=== PATIENT | male | born 1980 | race Caucasian/White ===

== ENCOUNTER 2020-05-23 20:05 | Observation (INO) ==
[2020-05-23] MEDS ORDERED: ONDANSETRON 4 MG/2 ML VIAL IV STA (21:18)
[2020-05-23] MEDS ORDERED: HYDROmorphone 2 MG/1 ML VIAL IV STA ×2 (21:18→22:38)
[2020-05-23] MEDS ORDERED: SODIUM CHLORIDE 0.9% 1,000 ML IV STA (21:18)
[2020-05-23] MEDS ORDERED: PIPERACILLIN/TAZOBACTAM 3,375 MG in SODIUM CHLORIDE 0.9% 100 ML IV STA (22:37)
[2020-05-23 22:41] LABS: Basophils # 0.1 10*3/uL (0.0-0.2); Basophils % 0.3 % (0.0-0.8); Eosinophils % 0.1 % (0.00-10.9); Hematocrit 48.8 VOL% (42.0-52.0); Immature Granulocytes % 0.5 %; Lymphocytes # 1.4 10*3/uL (1.4-4.0); Lymphocytes % 6.9 % (21.2-54.2); Mean Corpuscular HGB Conc 32.8 GM/DL (32-36); Mean Corpuscular Volume 95.1 FL (87-102); Mean Platelet Volume 10.3 FL (9.6-12.0); Monocytes % 7.4 % (1.7-12.7); Neutrophils % 84.8 % (38.7-73.9); Platelet Count 314 T/CUMM (130-400); Red Blood Count 5.13 MC/CUMM (3.8-5.5); Red Cell Distribution Width 12.5 % (9.3-17.3); White Blood Count 20.7 T/CUMM (4-12)
[2020-05-23 22:51] LABS: Bilirubin,Total 0.8 MG/DL (0.2-1.0); Calcium 8.7 MG/DL (8.5-10.1); Osmolality,Calculated 275.8 MOS/KG (273-304); Total Protein 7.6 G/DL (6.4-8.3)
[2020-05-23] MEDS ORDERED: ONDANSETRON 4 MG/2 ML VIAL IV PRN (23:04)
[2020-05-23] MEDS ORDERED: ACETAMINOPHEN 500 MG TABLET PO PRN (23:04)
[2020-05-24] MEDS: DEXTROSE 5% NACL 0.9% 1,000 ML IV SCH ×3 (00:22→15:48)
[2020-05-24 02:49] LABS: Lymphocytes 7 % (20-55); Platelet Estimate Increased; Segmented Neutrophils 90 % (50-85); Total Cells Counted 100
[2020-05-24 02:51] LABS: Polychromasia Slight
[2020-05-24 02:52] LABS: Stomatocytes Slight
[2020-05-24] MEDS: PIPERACILLIN/TAZOBACTAM 3,375 MG in SODIUM CHLORIDE 0.9% 100 ML IV SCH ×2 (09:13→17:53)
[2020-05-24] MEDS: PANTOPRAZOLE 40 MG TABLET PO SCH (09:14)
[2020-05-24] MEDS ORDERED: propofoL 200 MG/20 ML VIAL IV ONE (09:41)
[2020-05-24] MEDS ORDERED: fentaNYL 100 MCG/2 ML VIAL ONE (09:41)
[2020-05-24] MEDS ORDERED: MIDAZOLAM 2 MG/2 ML VIAL ONE (09:41)
[2020-05-24] MEDS ORDERED: ROCURONIUM 50 MG/5 ML VIAL IV ONE (09:41)
[2020-05-24] MEDS ORDERED: LIDOCAINE 2% 5 ML VIAL ONE (09:41)
[2020-05-24] MEDS ORDERED: LIDOCAINE 1% 20 ML VIAL ONE (09:56)
[2020-05-24] MEDS ORDERED: BUPIVACAINE MPF 0.25% 30 ML VIAL ONE (09:56)
[2020-05-24] MEDS ORDERED: ePHEDrine 50 MG/ML VIAL ONE (10:34)
[2020-05-24] MEDS ORDERED: ONDANSETRON 4 MG/2 ML VIAL ONE (10:35)
[2020-05-24] MEDS ORDERED: PHENYLEPHRINE 1 MG/10 ML SYRINGE IV ONE (10:35)
[2020-05-24] MEDS ORDERED: CALCIUM CHLORIDE 1,000 MG/10 ML VIAL IV ONE ×2 (10:51→10:55)
[2020-05-24] MEDS ORDERED: SODIUM CHLORIDE 0.9% 100 ML IV ONE (10:55)
[2020-05-24] MEDS ORDERED: GLYCOPYRROLATE 0.4 MG/2 ML VIAL ONE (10:55)
[2020-05-24] MEDS ORDERED: NEOSTIGMINE 10 MG/10 ML VIAL ONE (10:55)
[2020-05-24] MEDS ORDERED: BISACODYL 5 MG TABLET PO PRN (11:08)
[2020-05-24] MEDS ORDERED: ALBUTEROL/IPRATROPIUM 3 ML NEB RESP TX PRN (11:08)
[2020-05-24] MEDS ORDERED: ONDANSETRON 4 MG/2 ML VIAL IV PRN ×2 (11:08→11:20)
[2020-05-24] MEDS ORDERED: KETOROLAC 15 MG/1 ML VIAL IV PRN (11:08)
[2020-05-24] MEDS ORDERED: HYDROmorphone 2 MG/1 ML VIAL IV PRN ×3 (11:08→11:20)
[2020-05-24] MEDS ORDERED: ACETAMINOPHEN 325 MG TABLET PO PRN (11:08)
[2020-05-24] MEDS ORDERED: SEVOFLURANE 1 UNIT/15 MINUTE INH ONE (11:19)
[2020-05-24] MEDS ORDERED: MEPERIDINE 50 MG/1 ML VIAL IV PRN (11:20)
[2020-05-24] MEDS ORDERED: diphenhydrAMINE 50 MG/1 ML VIAL IV PRN (11:20)
[2020-05-24] MEDS ORDERED: PROMETHAZINE INJ 25 MG in SODIUM CHLORIDE 0.9% 50 ML IV PRN (11:20)
[2020-05-24 11:28] LABS: Bilirubin,Urine Negative (Negative); Blood, Urine Negative (Negative); Glucose,Urine (UA) Negative (Negative); Ketones,Urine 100 mg/dL (Negative); Nitrite,Urine Negative (Negative); Protein,Urine Negative; Urine Appearance Clear (Clear); Urine Color Yellow (Yellow); Urine Specific Gravity 1.015 (1.001-1.035); Urine Urobilinogen 0.2 EU/DL (0.2-1.0)
[2020-05-24] MEDS ORDERED: MEPERIDINE 25 MG/1 ML VIAL ONE (11:36)
[2020-05-24 14:58] LABS: Barbiturates Screen,Urine Negative (Negative); Benzodiazepines Screen,Urine Negative (Negative); Cannabinoid Screen,Urine Positive (Negative); Opiate Screen,Urine Positive (Negative); Phencyclidine Screen,Urine Negative (Negative)
[2020-05-24] MEDS: metroNIDAZOLE INJ 500 MG in PREMIX 1 EACH IV SCH (16:25)
[2020-05-25] MEDS: metroNIDAZOLE INJ 500 MG in PREMIX 1 EACH IV SCH (00:35)
[2020-05-25] MEDS: PIPERACILLIN/TAZOBACTAM 3,375 MG in SODIUM CHLORIDE 0.9% 100 ML IV SCH ×2 (01:38→09:32)
[2020-05-25] MEDS ORDERED: LEVOFLOXACIN INJ 500 MG in PREMIX 1 EACH IV SCH (05:09)
[2020-05-25 05:45] LABS: Basophils % 0.4 % (0.0-0.8); Eosinophils % 0.1 % (0.00-10.9); Hematocrit 39.9 VOL% (42.0-52.0); Hemoglobin 13.2 GM/DL (14.0-18.0); Immature Granulocytes % 0.3 %; Immature Granulocytes Absolute 0.03 #; Lymphocytes # 0.5 10*3/uL (1.4-4.0); Lymphocytes % 4.7 % (21.2-54.2); Mean Corpuscular HGB Conc 33.1 GM/DL (32-36); Mean Corpuscular Volume 96.6 FL (87-102); Mean Platelet Volume 10.3 FL (9.6-12.0); Monocytes % 4.9 % (1.7-12.7); Neutrophils % 89.6 % (38.7-73.9); Platelet Count 178 T/CUMM (130-400); Red Blood Count 4.13 MC/CUMM (3.8-5.5); Red Cell Distribution Width 12.9 % (9.3-17.3); White Blood Count 11.3 T/CUMM (4-12)
[2020-05-25] MEDS ORDERED: ENOXAPARIN 40 MG/0.4 ML SYRINGE SUBCUT SCH (06:00)
[2020-05-25 06:14] LABS: Eosinophils 1 % (0-10); Lymphocytes 4 % (20-55); Segmented Neutrophils 92 % (50-85); Total Cells Counted 100
[2020-05-25 06:15] LABS: Anisocytosis 1+; Hypochromasia 2+; Macrocytosis 1+; Platelet Estimate Normal
[2020-05-25] MEDS: DEXTROSE 5% NACL 0.9% 1,000 ML IV SCH (09:31)
[2020-05-25] MEDS: PANTOPRAZOLE 40 MG TABLET PO SCH (09:32)
[2020-05-25 12:23] VITALS: BP 119/73
== END 2020-05-25 16:15 | disposition home or self-care (01) ==
LOC: N.ED 20:05 → N.EDINP 20:05 → N.TELEN 05-24 01:34
PROVIDERS: ADMIT Surgery; ATTEND Surgery